=== PATIENT | male | born 1945 | race Caucasian/White ===

== ENCOUNTER 2020-09-28 01:33 | Emergency (ER) | payer OTHER ==
[~2020-09-28] VITALS: Ht 170.2 cm; Wt 81.6 kg
[2020-09-28] MEDS ORDERED: EPINEPHrine HCL 1 MG/10 ML SYRG IV ONE (01:34)
[2020-09-28] MEDS ORDERED: SODIUM BICARBONATE 8.4% INJ 50ML SYRINGE IV ONE (01:34)
[2020-09-28 01:35] VITALS: BP 0/0
== END 2020-09-28 01:47 ==
LOC: ER 01:33 → EDBD 01:33 → ER 01:47
DX: I46.9 Cardiac arrest, cause unspecified (principal); I10 Essential (primary) hypertension
CPT/HCPCS: 92950; 99285; J0171